=== PATIENT | male | born 1985 | race Caucasian/White ===

== ENCOUNTER 2020-02-14 10:32 | Outpatient (REF) | payer OTHER, SELFPAY ==
[2020-02-14 13:05] LABS: MANUAL DIFF FLAG NO
[2020-02-14 13:19] LABS: Alanine Aminotransferase 25 U/L (0-40); Albumin Level 4.4 g/dL (3.5-5.0); Alkaline Phosphatase 63 U/L (39-117); Anion Gap 11 (12-20); Aspartate Amino Transferase 23 U/L (5-37); Bilirubin Total 0.7 mg/dL (0.0-1.0); Blood Urea Nitrogen 13 mg/dL (9-16); Calcium 9.2 mg/dL (8.4-10.2); Carbon Dioxide 29 mmol/L (22-29); Chloride 102 mmol/L (96-108); Cholesterol 200 mg/dL; Estimated Glomerular Filt Rate > 60; Glucose Fasting 94 mg/dL (60-99); HDL Cholesterol 59 mg/dL; LDL Cholesterol Calculated 133 mg/dl; Potassium 4.4 mmol/l (3.3-5.1); Sodium 138 mmol/L (135-145); Total Protein 7.5 g/dL (6.5-8.0); Triglycerides 44 mg/dL
[2020-02-14 13:33] LABS: Basophils Absolute Auto 0.1 X10*3/uL (0.0-0.2); Basophils Percent Auto 0.7 % (0-2); Eosinophils Absolute Auto 0.2 X10*3/uL (0.0-0.4); Eosinophils Percent Auto 1.8 % (0-4); Hematocrit 48.2 % (42-52); Imm Gran Abs Auto 0.04 X10*3/uL (0.00-0.03); Imm Gran Pct Auto 0.4 % (0.0-0.4); Lymphocytes Absolute Auto 1.6 X10*3/uL (1.2-4.9); Lymphocytes Percent Auto 16.8 % (20-40); Mean Corpuscular HGB Conc 33.2 g/dl (31.0-36.0); Mean Corpuscular Hemoglobin 31.3 pg (27.0-33.0); Mean Corpuscular Volume 94.1 fL (80-98); Mean Platelet Volume 9.1 fL (9.4-12.4); Monocytes Absolute Auto 0.5 X10*3/uL (0.1-1.2); Monocytes Percent Auto 5.7 % (2-11); Neutrophils Absolute Auto 7.1 X10*3/uL (2.0-8.3); Neutrophils Percent Auto 74.6 % (45-73); Platelet Count 442 X10*3/uL (160-400); Red Blood Count 5.12 X10*6/uL (4.60-5.80); Red Cell Distribution Width 11.8 % (11.0-16.0); White Blood Count 9.5 X10*3/uL (4.8-10.8)
[2020-02-14 14:42] LABS: Erythrocyte Sedimentation Rate 2 MM/HR (0-15)
== END 2020-02-14 10:33 | disposition home or self-care (01) ==
LOC: HO.LAB 10:32
PROVIDERS: PCP Internal Medicine Medical Oncology; Visit Provider Internal Medicine Medical Oncology
DX: K52.9 Noninfective gastroenteritis and colitis, unspecified (principal); E78.5 Hyperlipidemia, unspecified
CPT/HCPCS: 36415; 80053; 80061; 85025; 85652; 87045; 87046; 87177; 87209; 87324; 87449

== ENCOUNTER 2021-04-23 08:20 | Outpatient (REF) | payer BC, SELFPAY ==
--- NOTE | ~2021-04-23 | FL_ITS ---
EXAMINATION: XR FLUOROSCOPY UPPER GI WITH AIR CLINICAL INFORMATION: Upper abdominal pain COMPARISON: None TECHNIQUE: Air-contrast upper GI examination FINDINGS: Patient swallowed thin and thick barium without difficulty. There is normal apposition of vocal cords while saying E . There is normal elevation of the soft palate while saying candy . No nasopharyngeal reflux or tracheal aspiration was present. No persistent stricture or ulceration of the esophagus was identified. There appears to be small amount of mucosal irregularity at the gastroesophageal junction. There is spontaneous gastroesophageal reflux seen to the level of the thoracic inlet. This did clear rapidly. Patient swallowed half-inch diameter barium tablet without difficulty. The stomach demonstrated normal distensibility without evidence of ulceration or abnormal mass. There was no delay in gastric emptying. The duodenal bulb and sweep appeared unremarkable. FLUOROSCOPY TIME: 1.3 minutes DOSE AREA PRODUCT: 12.401 Gy-cm2 (flores-centimeter squared) FL/FL upper GI w air IMPRESSION: Free gastroesophageal reflux to the level of the thoracic inlet with what appears to be some mild mucosal abnormality at the gastroesophageal junction. Some degree of Aponte's esophagus not excluded.
--- NOTE | ~2021-04-23 | US_ITS ---
EXAMINATION: US ABDOMEN COMPLETE CLINICAL INFORMATION: Upper abdominal pain. COMPARISON: None TECHNIQUE: Real-time imaging of the abdominal viscera. FINDINGS: PANCREAS: The head and body appear unremarkable without abnormal mass or peripancreatic inflammatory change. The tail is obscured by overlying bowel gas. ABDOMINAL AORTA: The proximal, mid, and distal segments are normal in caliber. INFERIOR VENA CAVA: Visualized portions are normal. LIVER: There is diffusely increased echogenicity consistent with fatty infiltration. The liver contour is normal. No focal hepatic lesion. There is no intrahepatic biliary duct dilatation seen. GALLBLADDER: Normal. The gallbladder is physiologically distended without evidence of stones, sludge, polyps, wall thickening or pericholecystic fluid. COMMON BILE DUCT: Normal in caliber measuring 0.3 cm in diameter. RIGHT KIDNEY: Normal. No hydronephrosis. No renal calculi or focal parenchymal lesions. The kidney measures 12.2 cm in maximum dimension. LEFT KIDNEY: Normal. No hydronephrosis. No renal calculi or focal parenchymal lesions. The kidney measures 11.1 cm in maximum dimension. SPLEEN: Normal. The spleen measures 11.9 cm in maximum dimension. FREE FLUID: None. US/US abdomen complete IMPRESSION: Findings consistent with fatty infiltration of the liver.
== END 2021-04-23 08:21 | disposition home or self-care (01) ==
LOC: HO.US 08:20
PROVIDERS: PCP Internal Medicine Medical Oncology; Visit Provider Internal Medicine Medical Oncology
DX: R10.10 Upper abdominal pain, unspecified (principal); K21.9 Gastro-esophageal reflux disease without esophagitis
CPT/HCPCS: 74246; 76700

== ENCOUNTER 2021-07-14 15:34 | Emergency (ER) | payer BC, SELFPAY ==
--- NOTE | ~2021-07-14 | US_ITS ---
EXAMINATION: US VENOUS ULTRASOUND WITH DOPPLER LOWER EXTREMITY, RIGHT CLINICAL INFORMATION: Right lower extremity pain and swelling COMPARISON: None TECHNIQUE: Ultrasound of the deep veins is performed from the hip to the calf with compression sonography and color and pulse Doppler assessment. Spectral analysis with color-flow imaging is performed. FINDINGS: There is normal venous compression and respiratory variation and augmented flow. The visualized common femoral vein, superficial femoral vein, profunda femoral vein, popliteal vein, and the trifurcation region shows no evidence of deep venous thrombosis. There is no significant popliteal fossa cyst. If the patient's symptoms persist, followup ultrasound in 5 days 7 days might be of value to exclude proximal propagation from a non-visualized calf vein. US/US venous duplex LE RT IMPRESSION: No DVT demonstrated in the right lower extremity.
[2021-07-14 16:09] VITALS: BP 119/74; PULSE 88; RESP 16; TEMP 36.7; O2SAT 98; BMI 32.0
[2021-07-14 16:29] LABS: MANUAL DIFF FLAG NO
[2021-07-14 16:35] LABS: Basophils Absolute Auto 0.1 X10*3/uL (0.0-0.2); Basophils Percent Auto 0.8 % (0-2); Eosinophils Absolute Auto 0.3 X10*3/uL (0.0-0.4); Eosinophils Percent Auto 3.3 % (0-4); Hematocrit 45.1 % (42.0-52.0); Hemoglobin 14.8 g/dl (14.0-18.0); Imm Gran Abs Auto 0.03 X10*3/uL (0.00-0.03); Imm Gran Pct Auto 0.3 % (0.0-0.4); Lymphocytes Absolute Auto 2.4 X10*3/uL (1.2-4.9); Mean Corpuscular HGB Conc 32.8 g/dl (31.0-36.0); Mean Corpuscular Hemoglobin 30.6 pg (27.0-33.0); Mean Corpuscular Volume 93.2 fL (80.0-98.0); Monocytes Absolute Auto 0.6 X10*3/uL (0.1-1.2); Monocytes Percent Auto 6.8 % (2-11); Neutrophils Percent Auto 63.8 % (45-73); Platelet Count 365 X10*3/uL (160-400); Red Blood Count 4.84 X10*6/uL (4.60-5.80); Red Cell Distribution Width 11.9 % (11.0-16.0); White Blood Count 9.4 X10*3/uL (4.8-10.8)
[2021-07-14 16:36] LABS: INTERNATIONAL NORM RATIO 1.1 (0.9-1.1); Prothrombin Time 12.1 SEC (9.9-13.0)
[2021-07-14 16:48] LABS: Alanine Aminotransferase 31 U/L (0-40); Albumin Level 4.4 g/dL (3.5-5.0); Alkaline Phosphatase 65 U/L (39-117); Anion Gap 13 (12-20); Aspartate Amino Transferase 24 U/L (5-37); Bilirubin Total 0.4 mg/dL (0.0-1.0); Blood Urea Nitrogen 20 mg/dL (9-16); Calcium 9.9 mg/dL (8.4-10.2); Carbon Dioxide 27 mmol/L (22-29); Chloride 104 mmol/L (96-108); Creatinine Clr Calc Pharmacy 133.6; Estimated Glomerular Filt Rate > 60; Glucose Random 94 mg/dL (60-115); Potassium 4.5 mmol/L (3.3-5.1); Sodium 139 mmol/L (135-145); Total Protein 7.6 g/dL (6.5-8.0)
[2021-07-14 16:55] LABS: D Dimer High Sensitivity < 150 NG/ML
--- NOTE | 2021-07-14 17:06 | ED_ITS ---
HPI - Extremity Injury (Lower) General Chief Complaint: Extremity Injury, Lower Stated Complaint: rt leg pain Time Seen by Provider: 07/14/21 16:12 Source: patient Mode of arrival: ambulatory Limitations: no limitations History of Present Illness HPI Narrative: This is a 35-year-old male no significant medical history presenting to the emergency department complaints of right calf pain/discomfort x3 weeks. Patient tells me that he feels a deep discomfort/throbbing sensation in his right calf, he tells me that last week he felt like he was moving up to his right hamstring. 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 He does not have a history of DVT or PE. He does not carry a sedentary lifestyle. He is not on blood thinners. No family or personal history history of hypercoagulable disorders. Patient denies chest pain, shortness of breath, nausea, vomiting, abdominal pain, dizziness, weakness. He also denies recent long travel. He was advised to come in today by his PCP. MD complaint: other (Atraumatic right calf pain) Onset (ago): week(s) (3) Type of Injury: other (None) Severity: mild Relieving factors: nothing Exacerbating factors: nothing Other symptoms: none Related Data Previous Rx's Medication Instructions Recorded cyclobenzaprine 10 mg tablet 10 mg PO BEDTIME PRN #7 tab 07/14/21 naproxen 500 mg tablet 500 mg PO BID #30 tab 07/14/21 Allergies Allergy/AdvReac Type Severity Reaction Status Date / Time No Known Allergies Allergy Verified 07/14/21 16:09 Review of Systems Review of Systems: Constitutional : No Weight loss, No Fever, No Chills, No Fatigue, No Malaise ENT/Mouth : No sore throat, No Rhinorrhea Eyes: No Eye Pain, No Swelling, No Redness Cardiovascular : No Chest Pain, No SOB, No Dyspnea on Exertion, No Orthopnea, No Edema, No Palpitations Respiratory : No Cough, No Sputum, No Wheezing Gastrointestinal : No Nausea, No Vomiting, No Diarrhea, No Constipation, No abdominal Pain, No Hematochezia, No Melena Genitourinary : No Dysuria, No Urinary Frequency, No Hematuria, Musculoskeletal : No joint pain, No Myalgias, No Joint Swelling, + calf pain Skin : No Skin Lesions, No rash Neuro : No Weakness, No Numbness, No Dizziness, No Headache Psych : No Anxiety/Panic, No Depression All other systems reviewed and are negative Yes all other systems are reviewed and are negative COUNTS INCLUDE 234 BEDS AT THE [facility] Past Medical History Attestation statement: The following information was validated with the patient. Source: old records reviewed and nursing notes reviewed Medical History No known health problems Social History Social History Advance Directives: No Advance Directives Information Provided: No Physical Exam Vital Signs: Vital Signs: Last Vital Signs Temp 98.1 F 07/14/21 16:09 Pulse 88 07/14/21 16:09 Resp 16 07/14/21 16:09 BP 119/74 07/14/21 16:09 Pulse Ox 98 07/14/21 16:09 BMI result Body Mass Index 32.0 vss Appearance: Alert.? Oriented X3.? No acute distress.? Head: Normocephalic, atraumatic, no step-offs or deformities Eyes: Pupils equal, round and reactive to light.? ENT: Pharynx normal.? Neck: Normal inspection.? Neck supple.? CVS: Normal heart rate and rhythm.? Pulses normal.? Respiratory: No respiratory distress.? Breath sounds normal.? Abdomen: Soft and nontender.? Skin: Skin warm and dry.? Normal skin color.? Normal skin turgor.? Extremities: No lower extremity edema.? +calf ttp on right + laith or right, no calf ttp on left, negative laith on left . 5/5 strength to bilateral upper and lower extremities Back: No midline tenderness, no C-spine tenderness, full range of motion, no CVA tenderness bilaterally Neuro: Oriented X 3.? No motor deficit.? No sensory deficit. CN 2-12 intact Course Reevaluation(s) Reevaluation #1: CBC within normal limits. Chemistry with no acute electrolyte abnormalities requiring intervention. D-dimer negative, unlikely that this is a PE/DVT. However, as patient was sent in by his PCP for an ultrasound will obtain an ultrasound of the right lower extremity to rule out DVT. Time: 17:51 Reevaluation #2: Patient with stable vitals. Feels well, no shortness of breath, or chest pain. At this time I will discharge patient home and call him only if his ultrasound results are positive. Comfortable discharge home with PCP follow-up. Time: 18:12 MDM - Extremity Injury (Lower) MDM Narrative Medical decision making narrative: 1618 35-year-old male no significant medical history presents with atraumatic right calf pain. Advised to come in to rule out DVT by PCP. On exam lungs clear, regular rate and rhythm, abdomen soft nontender nondistended, no lower extremity edema, calf tenderness to the right calf no tenderness on a left. Neuro exam nonfocal. Very low suspicion for DVT, unlikely PE. Patient does not have risk factors for PE/DVT. Plan at this time is PT INR, basic labs, D-dimer. Medical Records Attestation: I reviewed the patient's medical records. Lab Data Attestation: I reviewed the patient's lab results. Result diagrams: 07/14/21 16:24 07/14/21 16:24 Labs: Lab Results 07/14/21 07/14/21 07/14/21 Range/Units 16:24 16:24 16:24 WBC 9.4 (4.8-10.8) X10*3/uL RBC 4.84 (4.60-5.80) X10*6/uL Hgb 14.8 (14.0-18.0) g/dl Hct 45.1 (42.0-52.0) % MCV 93.2 (80.0-98.0) fL MCH 30.6 (27.0-33.0) pg MCHC 32.8 (31.0-36.0) g/dl RDW 11.9 (11.0-16.0) % Plt Count 365 (160-400) X10*3/uL MPV 9.0 L (9.4-12.4) fL Immature Gran % (Auto) 0.3 (0.0-0.4) % Neut % (Auto) 63.8 (45-73) % Lymph % (Auto) 25.0 (20-40) % Gila % (Auto) 6.8 (2-11) % Eos % (Auto) 3.3 (0-4) % Baso % (Auto) 0.8 (0-2) % Lymph # (Auto) 2.4 (1.2-4.9) X10*3/uL Gila # (Auto) 0.6 (0.1-1.2) X10*3/uL Eos # (Auto) 0.3 (0.0-0.4) X10*3/uL Baso # (Auto) 0.1 (0.0-0.2) X10*3/uL Abs Immat Gran (auto) 0.03 (0.00-0.03) X10*3/uL Absolute Neuts (auto) 6.0 (2.0-8.3) x10*3/uL Absolute Nucleated RBC 0.000 (0.0-0.012) X10*3/uL Nucleated RBC % (auto) 0.0 (0.0-0.2) /100WBC PT 12.1 (9.9-13.0) SEC INR 1.1 (0.9-1.1) D-Dimer High Sensitivty < 150 NG/ML Sodium 139 (135-145) mmol/L Potassium 4.5 (3.3-5.1) mmol/L Chloride 104 (96-108) mmol/L Carbon Dioxide 27 (22-29) mmol/L Anion Gap 13 (12-20) BUN 20 H (9-16) mg/dL Creatinine 0.93 (0.5-1.4) mg/dL Estim Creat Clear Calc 133.6 Estimated GFR > 60 Random Glucose 94 (60-115) mg/dL Calcium 9.9 D (8.4-10.2) mg/dL Magnesium 2.0 (1.6-2.6) mg/dL Total Bilirubin 0.4 (0.0-1.0) mg/dL AST 24 (5-37) U/L ALT 31 (0-40) U/L Alkaline Phosphatase 65 (39-117) U/L Total Protein 7.6 (6.5-8.0) g/dL Albumin 4.4 (3.5-5.0) g/dL Critical Care Time Critical Care Time Critical Care Time: No Discharge Plan Discharge Clinical Impression: Right calf pain Patient Disposition: Home, Self-Care Instructions: Leg Cramps (ED), Leg Pain (ED) Additional Instructions: Take your medications as prescribed. If you were prescribed antibiotics today, it is important that you take your medication to their entirety, do not skip any doses, do not finish them early. Follow-up with your primary care provider this week. Return to the emergency department with new or worsening symptoms. Such as fevers, chills, chest pain, shortness of breath, nausea, vomiting, dizziness, headache, vision changes, lethargy In case of emergency call 911 I prescribed a muscle relaxer, he can take this night before bed, please do not take this while driving or when operating machinery as this can make you sleepy. This can help your calf pain. Your ultrasound is still pending I will give you a phone call only if results are positive. If you do not receive a phone call your results are negative. I do not suspect that you have a DVT as your D-dimer was negative. Prescriptions: New cyclobenzaprine 10 mg tablet 10 mg PO BEDTIME PRN (Reason: muscle spasm) Qty: 7 0RF naproxen 500 mg tablet 500 mg PO BID Qty: 30 0RF Referrals: Juan Bautista MD [Primary Care Provider] - 1 week Stand Alone Forms: Work/School Release
== END 2021-07-14 18:22 | disposition home or self-care (01) ==
PROVIDERS: Physician Assistant Medical; Emergency Provider Emergency Medicine; PCP Internal Medicine Medical Oncology
DX: M79.661 Pain in right lower leg (principal); R60.0 Localized edema; Z79.899 Other long term (current) drug therapy
CPT/HCPCS: 36415; 80053; 83735; 85025; 85379; 85610; 93971; 99283; 99284

== ENCOUNTER 2023-02-26 09:28 | Outpatient (REF) | payer BC, SELFPAY ==
[2023-02-26 09:56] LABS: MANUAL DIFF FLAG NO
[2023-02-26 10:36] LABS: Basophils Absolute Auto 0.1 X10*3/uL (0.0-0.2); Eosinophils Absolute Auto 0.5 X10*3/uL (0.0-0.4); Eosinophils Percent Auto 6.9 % (0-4); Hematocrit 45.6 % (42.0-52.0); Hemoglobin 14.5 g/dl (14.0-18.0); Imm Gran Abs Auto 0.02 X10*3/uL (0.00-0.03); Imm Gran Pct Auto 0.3 % (0.0-0.4); Lymphocytes Absolute Auto 2.1 X10*3/uL (1.2-4.9); Lymphocytes Percent Auto 30.7 % (20-40); Mean Corpuscular HGB Conc 31.8 g/dl (31.0-36.0); Mean Corpuscular Hemoglobin 30.1 pg (27.0-33.0); Mean Corpuscular Volume 94.6 fL (80.0-98.0); Mean Platelet Volume 8.9 fL (9.4-12.4); Monocytes Absolute Auto 0.6 X10*3/uL (0.1-1.2); Monocytes Percent Auto 8.2 % (2-11); Neutrophils Absolute Auto 3.6 x10*3/uL (2.0-8.3); Neutrophils Percent Auto 52.9 % (45-73); Platelet Count 377 X10*3/uL (160-400); Red Blood Count 4.82 X10*6/uL (4.60-5.80); Red Cell Distribution Width 12.2 % (11.0-16.0); White Blood Count 6.9 X10*3/uL (4.8-10.8)
[2023-02-26 11:10] LABS: Alanine Aminotransferase 17 U/L (0-40); Albumin Level 4.3 g/dL (3.5-5.0); Alkaline Phosphatase 65 U/L (39-117); Anion Gap 11 (12-20); Aspartate Amino Transferase 19 U/L (5-37); Bilirubin Total 0.5 mg/dL (0.0-1.0); Blood Urea Nitrogen 14 mg/dL (9-16); Calcium 9.1 mg/dL (8.4-10.2); Carbon Dioxide 29 mmol/L (22-29); Chloride 108 mmol/L (96-108); Cholesterol 201 mg/dL (<200); Estimated Glomerular Filt Rate > 60; Glucose Fasting 99 mg/dL (60-99); HDL Cholesterol 58 mg/dL (>40); LDL Cholesterol Calculated 134 mg/dL (<100); Potassium 4.1 mmol/L (3.3-5.1); Sodium 144 mmol/L (135-145); Total Protein 7.5 g/dL (6.5-8.0); Triglycerides 48 mg/dL (<150)
== END 2023-02-26 09:29 | disposition home or self-care (01) ==
LOC: HO.LAB 09:28
PROVIDERS: PCP Internal Medicine Medical Oncology; Visit Provider Internal Medicine Medical Oncology
DX: Z00.00 Encounter for general adult medical examination without abnormal findings (principal); E66.9 Obesity, unspecified
CPT/HCPCS: 36415; 80053; 80061; 85025

== ENCOUNTER 2023-09-20 14:30 | Outpatient (REF) | payer BC, SELFPAY ==
--- NOTE | ~2023-09-20 | XR_ITS ---
EXAMINATION: XR LUMBOSACRAL SPINE WITH OBLIQUES CLINICAL INFORMATION: Lumbar back pain COMPARISON: None available. TECHNIQUE: AP, both oblique, and lateral views of the lumbar spine. Lateral view of the lumbosacral junction. FINDINGS: The vertebral bodies and posterior elements are normal. No spondylolysis. The disc spaces are preserved and the vertebral alignment is normal. The paraspinal soft tissues are normal. XR/XR lumbar spine 4V min IMPRESSION: Unremarkable examination.
== END 2023-09-20 14:31 | disposition home or self-care (01) ==
LOC: HO.XRAY 14:30
PROVIDERS: Visit Provider Internal Medicine Medical Oncology
DX: M54.50 Low back pain, unspecified (principal)
CPT/HCPCS: 72110

== ENCOUNTER 2023-09-27 11:50 | Outpatient (REF) | payer BC, SELFPAY ==
--- NOTE | ~2023-09-27 | MR_ITS ---
EXAMINATION: MR LUMBAR SPINE WITHOUT CONTRAST CLINICAL INFORMATION: Pain radiating down right leg. COMPARISON: X-ray dated 09/20/2023. TECHNIQUE: MRI of the lumbar spine was obtained using routine sequences without contrast. Slightly limited study with motion artifacts. FINDINGS: At the L5-S1 level, there is mild disc degeneration and a mild loss of disc height with a shallow, broad-based right subarticular zone disc protrusion which mildly impresses upon the right S1 nerve root. No central canal stenosis or foraminal narrowing is evident at this level. There is a smaller left subarticular zone disc protrusion at this level as well. At the L4-L5 level, there is a slight posterior subluxation and mild facet arthropathy with a broad-based left posterolateral disc protrusion which contributes to [id number] left foraminal encroachment and mild impression upon the exiting left L4 nerve root. No central canal stenosis at this level. Very mild leftward lumbar spinal curvature noted. The remaining lower thoracic and lumbar discs are normal in appearance. The distal cord, conus tip, and cauda equina nerve roots are normal. The marrow signal is homogeneous. There are no compression fractures. The paraspinal soft tissues appear normal. The imaged bony pelvis is unremarkable. MR/MR lumbar spine wo con IMPRESSION: Slightly limited examination with motion artifacts. Disc degeneration and broad-based right subarticular zone disc protrusion at the L5-S1 level impressing upon the right S1 nerve root. Smaller left subarticular zone disc protrusion as well. Very mild posterior subluxation at the L4-L5 level with a broad-based left posterolateral disc protrusion resulting in [id number] left foraminal encroachment and mild mass effect upon the exiting left L4 nerve root.
== END 2023-09-27 11:51 | disposition home or self-care (01) ==
LOC: HO.MRI 11:50
PROVIDERS: PCP Internal Medicine Medical Oncology; Visit Provider Internal Medicine Medical Oncology
DX: M54.50 Low back pain, unspecified (principal)
CPT/HCPCS: 72148

== ENCOUNTER 2023-10-11 12:46 | Outpatient (AMB) | payer BC, SELFPAY ==
--- NOTE | 2023-10-11 13:01 | A.SPINEOV_ITS ---
Intake Visit Reasons: low back pain Intake Note: Mr. Barton is here today c/o back pain. Qa Developer Required: No Allergies No Known Allergies Allergy (Verified 07/14/21 16:09) Assessment & Plan Assessment & Plan (1) Lumbar radiculopathy: Code(s): M54.16 - Radiculopathy, lumbar region Category: Medical Plan Dear colleague, Thank you for referring Kamran to our office today. He is a pleasant 38-year-old male who comes in today with a chief complaint of low back pain with radiation into his right lower extremity. When describing the pain into his right lower extremity he states it originates in his posterior buttocks, shoots around the lateral right thigh, down the posterior gastrocnemius, & to the right calf. He reports that this has been waxing / waning in nature for the past 6 weeks. He identifies an inciting incident of bending over to pick something up on the way out to his truck in the morning before work. He felt a sharp pain in his back which brought him to the ground, and began experiencing shooting pains down his right leg. Thankfully, the patient states that his symptoms have greatly improved since onset, and are now low-grade in nature. They are isolated to his right leg, in his low back is not affected very much. He denies any saddle anesthesia or difficulties with urination / bowel movements. He has not tried conservative measures such as injections / physical therapy as of yet. PMH: None reported. Social hx: Patient does not smoke & reports no substance use. Medications: Gabapentin, cyclobenzaprine, dexamethasone, tramadol, Tylenol. Allergies: NKDA. Physical exam: The Patient has 5/5 strength in his upper and lower extremities. He does elicit pain to right-sided hip flexion. He denies any sensational deficits. He walks without an antalgic gait and rises from a seated position without difficulty. (-) Straight leg raise bilaterally. (-) clonus. Imaging review: MRI of the lumbar spine completed at [facility], [place] shows a right-sided paracentral disc bulge, which slightly compresses the ri ght-sided S1 nerve root. There is no significant foraminal or central canal stenosis. Impression: Kamran is a pleasant 38-year-old male who comes in today with a chief complaint of low back pain and shooting pains into his right lower extremity. He states that this was acute in onset. Thankfully, his symptoms have slowly resolved over the course of the last few weeks. His history and physical exam are most consistent with an acute disc herniation. it seems as though his symptoms are beginning to resolve. We discussed how 90% of disc herniations will resorb in the few months after they happen. He was strongly encouraged to continue pursuing conservative treatments and to reach back out to our office if he has any return of severe shooting pain, or any development of acute neurological symptoms such as numbness, tingling, burning, weakness, bowel/bladder issues. He is scheduled to begin physical therapy on October 27. Thank you for allowing us to care for your patient. The total time spent with this visit with this patient was 45 minutes reviewing history, physical exam, MRI imaging review, and implementation of treatment plan or further diagnostic testing Shaka Weaver MD,PhD [facility] [place] Coding Level of Care Code New Pt Level 4 (91160) Diagnoses Lumbar radiculopathy M54.16
== END 2023-10-11 13:57 | disposition home or self-care (01) ==
PROVIDERS: PCP Internal Medicine Medical Oncology; Referring Provider Internal Medicine Medical Oncology; Visit Provider Physician Assistant
DX: M54.16 Radiculopathy, lumbar region (principal)
CPT/HCPCS: 99204

== ENCOUNTER → 2023-10-11 12:46 | Outpatient (BNVA) | payer BC, SELFPAY | PROVIDERS: PCP Internal Medicine Medical Oncology; Visit Provider Physician Assistant ==

== ENCOUNTER 2023-10-11 14:23 | Outpatient (AMB) | payer BC, SELFPAY ==
--- NOTE | 2023-10-11 14:35 | A.OFFVIS_ITS ---
Vital Signs 10/11/23 14:42 Height 6 ft Weight 220 lb 2 oz BMI 29.9 BP 124/64 Blood Pressure Location Lt brachial Position Sitting Respiration 16 Pulse 102 H Pulse Source Pulse Oximeter Pulse Oximetry (%) 97 Oxygen Delivery Method Room Air Intake Visit Reasons: LUMBAR BACK PAIN WITH RADICULOPATHY Intake Note: Patient comes in initial visit was referred by primary care. Reports pain 3/10 Allergies No Known Allergies Allergy (Verified 10/11/23 14:42) HPI Comments Details: Liat is very pleasant 38 years old gentleman who presents in my office with complains on pain in the right buttock with radiation of the pain to the right lower extremity. He reports that his pain was very severe and almost unbearable 3 weeks ago when appointment was scheduled. However now his pain is very mild he reports his pain today 3/10. He reports that his pain is getting better. He can not sleep normally because of his pain but he can not do activities of daily living he can not take care of himself he can not function normally. 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 Movements aggravate his pain topical medications all medications make his pain better. He is scheduled to start physical therapy October 27. He had x-rays and an MRI of the lumbar spine the MRI dictated as below. Currently he is taking gabapentin tramadol and cyclobenzaprine and those medications help his sleep. He denies past medical history he denies past surgical history he denies smoking cigarettes he stopped 3 months ago. He drinks 3-4 beers a week he denies drinking soda or coffee he denies he denies recreational drugs [facility] Medical History No known health problems Review of Systems Const Reports no additional complaints Eyes Reports no additional complaints ENT Reports Normal hearing present Card Reports no additional complaints Resp Reports no additional complaints GI Reports no additional complaints Reports no additional complaints Musc Reports as per HPI Neuro Reports no additional complaints, Reports Normal hearing present, Denies Abnormal speech present, Denies confusion and Denies Sensory deficit (Neuro) Psych Reports no additional complaints and Denies confusion Physical Exam Vital Signs: Last Vital Signs Pulse 102 H 10/11/23 14:42 Resp 16 10/11/23 14:42 BP 124/64 10/11/23 14:42 Pulse Ox 97 10/11/23 14:42 Oxygen Delivery Method Room Air 10/11/23 14:42 BMI result Body Mass Index 29.9 Const General: no acute distress; No confusion Orientation/consciousness: patient oriented x3 and No confusion Eyes General: appearance normal, both eyes and all related structures Pupils: Equal, round and reactive pupils present EOM: EOMs intact bilaterally Neck Neck: Yes full ROM Chest Chest palpation & inspection: normal inspection of the chest Resp Effort & Inspection: normal respiratory effort, able to speak in complete sentences, normal respiratory pattern, no audible wheezes and no cough Cardio Jugular venous distension: no JVD GI Inspection: Yes normal to inspection Back/Spine/Pelvis Other: SLR is equivocal on the right and negative on the left. Bending forward and bending backwards used to aggravate his pain. However now he reports that both bending backwards and bending forward is painless. Lateral rotation and medial rotation of the right hip does not aggravate his pain. Neuro General: patient oriented x3, gait normal and No confusion Cranial nerves: Yes CN's II-XII intact bilaterally, Yes Equal, round and reactive pupils present, Yes Normal hearing present and Yes Ability to bilaterally elevate shoulders present Speech: No Abnormal speech present Gait exam (Neuro): Normal gait present Motor exam (neuro): 5/5 motor strength present throughout Sensory Exam: No Sensory deficit (Neuro) Extrem General: No pedal edema Psych Speech and movement: Normal speech and movement present Affect: normal affect Attitude: cooperative Thought process: Normal thought process present Thought content: Normal thought content present Insight: Good insight present (Psych) Judgement: Good judgement present (Psych) Results Reviewed Results Reviewed: MR LUMBAR SPINE WITHOUT CONTRAST TECHNIQUE: MRI of the lumbar spine was obtained using routine sequences without contrast. Slightly limited study with motion artifacts. FINDINGS: At the L5-S1 level, there is mild disc degeneration and a mild loss of disc height with a shallow, broad-based right subarticular zone disc protrusion which mildly impresses upon the right S1 nerve root. No central canal stenosis or foraminal narrowing is evident at this level. There is a smaller left subarticular zone disc protrusion at this level as well. At the L4-L5 level, there is a slight posterior subluxation and mild facet arthropathy with a broad-based left posterolateral disc protrusion which contributes to [id number] left foraminal encroachment and mild impression upon the exiting left L4 nerve root. No central canal stenosis at this level. Very mild leftward lumbar spinal curvature noted. The remaining lower thoracic and lumbar discs are normal in appearance. The distal cord, conus tip, and cauda equina nerve roots are normal. The marrow signal is homogeneous. There are no compression fractures. The paraspinal soft tissues appear normal. The imaged bony pelvis is unremarkable. IMPRESSION: Slightly limited examination with motion artifacts. Disc degeneration and broad-based right subarticular zone disc protrusion at the L5-S1 level impressing upon the right S1 nerve root. Smaller left subarticular zone disc protrusion as well. Very mild posterior subluxation at the L4-L5 level with a broad-based left posterolateral disc protrusion resulting in [id number] left foraminal encroachment and mild mass effect upon the exiting left L4 nerve root. Assessment & Plan Assessment & Plan (1) Lumbar radiculopathy: Code(s): M54.16 - Radiculopathy, lumbar region Category: Medical Plan MRI of this patient positive for nerve root compression at exiting L4 and passing S1 nerve roots. However the patient is improving and his pain is getting better. He is starting physical therapy 10/28/2023. 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 Recommendations: Continue with physical therapy. Be cognizant of lower back problem, use ergonomics at work. If after completion of physical therapy his pain is not better or getting worse he can not come back to this office and we will try epidural steroid injections on him. Coding Level of Care Code New Pt Level 3 (02613) Diagnoses Lumbar radiculopathy M54.16
[2023-10-11 14:42] VITALS: BP 124/64; PULSE 102; RESP 16; O2SAT 97; BMI 29.9
== END 2023-10-11 15:07 | disposition home or self-care (01) ==
PROVIDERS: PCP Internal Medicine Medical Oncology; Referring Provider Internal Medicine Medical Oncology; Visit Provider Anesthesiology
DX: M54.16 Radiculopathy, lumbar region (principal)
CPT/HCPCS: 99203

== ENCOUNTER 2024-02-29 16:12 | Outpatient (REF) | payer BC, SELFPAY ==
[2024-02-29 16:29] LABS: MANUAL DIFF FLAG NO
[2024-02-29 17:08] LABS: Basophils Absolute Auto 0.1 X10*3/uL (0.0-0.2); Basophils Percent Auto 0.8 % (0-2); Eosinophils Absolute Auto 0.1 X10*3/uL (0.0-0.4); Eosinophils Percent Auto 0.9 % (0-4); Hematocrit 43.5 % (42.0-52.0); Hemoglobin 14.6 g/dl (14.0-18.0); Imm Gran Abs Auto 0.02 X10*3/uL (0.00-0.03); Imm Gran Pct Auto 0.2 % (0.0-0.4); Lymphocytes Absolute Auto 2.5 X10*3/uL (1.2-4.9); Mean Corpuscular HGB Conc 33.6 g/dl (31.0-36.0); Mean Corpuscular Hemoglobin 30.5 pg (27.0-33.0); Mean Platelet Volume 8.7 fL (9.4-12.4); Monocytes Absolute Auto 0.8 X10*3/uL (0.1-1.2); Neutrophils Absolute Auto 6.8 x10*3/uL (2.0-8.3); Neutrophils Percent Auto 66.1 % (45-73); Platelet Count 407 X10*3/uL (160-400); Red Blood Count 4.78 X10*6/uL (4.60-5.80); Red Cell Distribution Width 11.9 % (11.0-16.0); White Blood Count 10.2 X10*3/uL (4.8-10.8)
[2024-02-29 18:32] LABS: Alanine Aminotransferase 31 U/L (0-40); Albumin Level 4.6 g/dL (3.5-5.0); Alkaline Phosphatase 60 U/L (39-117); Anion Gap 12 (12-20); Aspartate Amino Transferase 25 U/L (5-37); Bilirubin Total 0.6 mg/dL (0.0-1.0); Blood Urea Nitrogen 13 mg/dL (9-16); Calcium 9.7 mg/dL (8.4-10.2); Carbon Dioxide 29 mmol/L (22-29); Chloride 104 mmol/L (96-108); Cholesterol 204 mg/dL (<200); Estimated Glomerular Filt Rate > 60; Glucose Fasting 89 mg/dL (60-99); HDL Cholesterol 56 mg/dL (>40); LDL Cholesterol Calculated 134 mg/dL (<100); Sodium 141 mmol/L (135-145); Total Protein 7.5 g/dL (6.5-8.0); Triglycerides 72 mg/dL (<150)
[2024-02-29 18:35] LABS: Prostate Specific Antigen 1.13 ng/mL (<0.05-4.0)
== END 2024-02-29 16:13 | disposition home or self-care (01) ==
LOC: HO.LAB 16:12
PROVIDERS: PCP Internal Medicine Medical Oncology; Visit Provider Internal Medicine Medical Oncology
DX: Z00.00 Encounter for general adult medical examination without abnormal findings (principal); E66.9 Obesity, unspecified; Z12.5 Encounter for screening for malignant neoplasm of prostate; N40.0 Benign prostatic hyperplasia without lower urinary tract symptoms
CPT/HCPCS: 36415; 80053; 80061; 84153; 85025

== ENCOUNTER 2024-08-28 16:43 | Outpatient (REF) | payer BC, SELFPAY ==
--- OUTSIDE RECORDS SUMMARY | 2024-08-28 17:11 | XMS_ITS ---
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 Name Role Phone Juan Bautista Primary Care Provider [phone] Allergies Allergen (clinical drug ingredient) Drug/Non Drug Allergy documented on EMR Reaction Allergy Type Onset Date Status No Known Drug Allergy Unknown Drug Allergy Active Reason For Referral Reason chalazion right uppe r eyelid refractory to antibiotics Diagnosis 1 Chalazion of right u pper eyelid (H00.11) Referral Organization Juan Bautista III, MD Referring Provider First Name Juan Referring Provider Last Name Michele Referring Provider Speciality Internal M edicine Referred Provider [facility] ociates Referred Provider Specialty Tub Chucker Referral Priority Routine REASON FOR VISIT Right eyelid swollen x 3 weeks Medications Medication SIG (Take, Route, Frequency, Duration) Notes Start Date End Date Status Gabapentin 300 MG 1 capsule Orally fou r times a day 09/28/2023 Active traMADol HCl 50 MG 1 tablet as needed Orally three times a angel 09/28/2023 Active Albuterol Sulfate 108 (90 Base) MCG/ACT 1 puff as needed Inhalation every 4 hrs Active dexAMETHasone 2 MG 1 tablet Orally ever y 12 hrs 09/20/2023 Active Cyclobenzaprine HCl 10 MG 1 tablet Orall y three times a day 09/20/2023 Active Social History Tobacco Use: Social History Observation Description Date Details (start date - stop date) Former Smoker NA - NA Sex Assigned At : Social History Observation Description Sex Assigned At Male Tobacco Control (Standard) Question Answer Notes Tobacco use: Former smoker How long has it been since you last smoked? 6-12 months Additional Findings: Tobacco non-user Ex-cigaret te smoker Vital Signs Temperature 97.9 degrees Fahrenheit 08/29/19 25 Blood pressure systolic 142 mm Hg 08/29/19 25 Blood pressure diastolic 73 mm Hg 025 Heart Rate 82 /min 08/28/2024 Height 71 in 08/28/2024 Weight 217 lbs 08/28/2024 BMI 30.26 kg/m2 08/28/2024 Encounters Encounter Location Date Provider Diagnosis Juan Bautista III, MD [address] [place] [address] [place] [address] 08/28/2024 Juan Bautista Obesity (BMI 30.0-34.9) E66.9 ; Lumbar radiculopathy, right M54.16 and Chalazion of right upper eyelid H00.11 Assessments Encounter Date Diagnosis (ICD Code) Assessment Notes Treatment Notes Treatment Clinical Notes 08/28/2024 Obesity (BMI 30.0-34.9) (ICD-10 - E66.9) He continues his efforts at further weight loss. We have reviewed his diet and nutrition. We have reviewed his weight loss strategy. We made a plan to lose weightt at a rate of one half of a pound per week through regular physical activity aand a diet restricted in fat calories and sodium. 08/28/2024 Lumbar radiculopathy, right (ICD-10 - M54.16) The MRI shows bilateral nerve impingement in the lower lumbar spine. His pain remains severe but has improved slightly with the gabapentin. I have increased the dose and continue the dexamethasone. He has been referred to pain management and neurosurgery. He has been given a supply of oxycodone to take 4 times a day for severe pain. He was cautioned not to drive an automobile or operate heavy machinery or consume alcohol with this medication. 08/28/2024 Chalazion of right upper eyelid (ICD-10 - H00.11) Plan Of Treatment Medication Medication Name Sig Start Date Stop Date Notes Gabapentin 300 MG 1 capsule Orally fou r times a day 09/28/2023 traMADol HCl 50 MG 1 tablet as needed O rally three times a angel 09/28/2023 Albuterol Sulfate 108 (90 Ba se) MCG/ACT 1 puff as needed Inhalation every 4 hrs dexAMETHasone 2 MG 1 tablet Orally ever y 12 hrs 09/20/2023 Cyclobenzaprine HCl 10 MG 1 tablet Orall y three times a day 09/20/2023 Pending Test Test Name Order Date Routine Culture 08/28/2024 Referrals Referral Date Details 08/28/2024 08/28/2024, kunal holley right upper eyelid refractory to antibiotics, [facility] Next Appt Details Follow Up: end of next week, Reason: TV review culture Provider Name:Juan Brightrne, 09/07/2024 10:30:00 AM, [address] [facility], [place], [address], Provider Name:Juan Michele, 03/02/2025 04:00:00 PM, [address] [facility], [place], [address], Progress Notes * Kamran BARTON FDOB: [birth year] (39 yo M)Acc No.[id number]:08/28/2024 Progress Notes Patient:?Kamran BARTON F Provider:?Juan Bautista MD :1985???Age:39 Y???Sex:Male Angel e:08/28/2024 Address: [address] [place], [id number] Subjective: * Chief Complaints: * ???1. Right eyelid swollen x 3 weeks. * HPI: ???COVID-19 Screening:?Questions?Have you had any new onset fever, chills, cough, congestion, sore throat, shortness of breath, muscle aches??No * ROS:?General/Constitutional:?pain?only normal aches and pains.?Chills?denies.?Fatigue?admits.?Fever?denies.?ENT:?Decreased hearing?denies.?Respiratory:?Cough?denies.?Cardiovascular:?Chest pain with exertion?denies.?Dyspnea on exertion?denies.?Shortness of breath?denies.?Gastrointestinal:?Constipation?denies.?Decreased appetite?denies.?Diarrhea?denies.?Heartburn?denies.?Nausea?denies.?Rectal bleeding?denies.?Vomiting?denies.?Hematology:?bruising?denies.?petechiae?denies.?Swollen glands?none have been noted.?Genitourinary:?Frequent urination?denies.?Musculoskeletal:?Muscle aches?denies.?Painful joints?denies.?Sciatica?denies.?Weakness?denies.?Skin:?Itching?denies.?Rash?denies.?Skin lesion(s)?denies.?Neurologic:?Difficulty speaking?denies.?Dizziness?denies.?Headache?denies.?Low back pain?denies.?Psychiatric:?Depressed mood?denies.? * Medical History:?Asthma, Obe sity, Dyspepsia, Vitiligo, GERD, Former smoker, February 2021 Covid19 19 infection. * Surgical History:?dental ext ractions without bleeding , No history . * Hospitalization/Major Diagno stic Procedure:?No history . * Family History:?Father: dece ased 37 yrs, Overdose from drugs and alcohol, diagnosed with CVD.?Mother: alive 59 yrs, Healthy and well.?Children: alive.?Son(s): alive.?Daughter(s): alive. Siblings: alive.?4 brother(s) , 1 sister(s) - healthy. 1 son(s) , 1 daughter(s) - healthy. .? His sister has a history of migraines and the recent lumbar puncture. He is not aware of any family syndrome inherited cancer. He is not aware of any diabetes hypertension or coronary artery disease. His 2 children are healthy and well. * Social History:?Tobacco Use:?Tobacco Control (Standard)?Tobacco use:?Former smoker ?How long has it been since you last smoked??6-12 months ?Additional Findings: Tobacco non-user?Ex-cigarette smoker ???He was in the [employer] for 4 years in [place]. He was born and cleans in [facility]. The family moved to [place] 13 years ago. He now lives in [place]. 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 He is to [place]. * Medications:?Taking Gabapent in 300 MG Capsule 1 capsule Orally four times a day , Taking traMADol HCl 50 MG Tablet 1 tablet as needed Orally three times a angel , Taking Albuterol Sulfate 108 (90 Base) MCG/ACT Aerosol Powder Breath Activated 1 puff as needed Inhalation every 4 hrs , Taking dexAMETHasone 2 MG Tablet 1 tablet Orally every 12 hrs , Taking Cyclobenzaprine HCl 10 MG Tablet 1 tablet Orally three times a day , Medication List reviewed and reconciled with the patient * Allergies:?No Known Drug All ergy. Objective: * Vitals:?Ht: 71, Wt: 217, BMI :30.26, BP: 142/73, HR: 82, Temp: 97.9, Ht-cm: 180.34, Wt-k.43. * Examination: ???General Examination: ?GENERAL APPEARANCE:?pleasant, well nourished, well developed, in no acute distress, calm and relaxed.?HEAD:?atraumatic, normocephalic.?EYES:?eomi, perrla, anicteric, conjugate.?EARS:?normal.?NOSE:?septum intact.?ORAL CAVITY:?normal, unremarkable.?NECK/THYROID:?no jugular venous distention, no carotid bruit, thyroid normal.?LYMPH NODES:?no enlarged lymph nodes,spleen normal.?SKIN:?no suspicious lesions, anicteric.?HEART:?no clicks, gallops, murmurs, or rubs, regular rhythm, S1, S2 normal, no s3, or vascular bruits.?LUNGS:?clear to auscultation .?BREASTS:??no masses palpable bilaterally.?ABDOMEN:?bowel sounds normal, no ascites, no organomegaly, no mass.?RECTAL EXAM:?not examined.?MUSCULOSKELETAL:?extremities unremarkable, no clubbing, cyanosis or edema.?PERIPHERAL PULSES:?normal.?NEUROLOGIC:?alert and oriented, cranial nerves 2-12 grossly intact, deep tendon reflexes 2+ symmetrical, motor strength normal upper and lower extremities, sensory exam intact.?PSYCH:?alert, oriented.? Assessment: * Assessment: 1.?Obesity (BMI 30.0-34.9) - E66.9???Notes :He continues his efforts at further weight loss. We have reviewed his diet and nutrition. We have reviewed his weight loss strategy. We made a plan to lose weightt at a rate of one half of a pound per week through regular physical activity aand a diet restricted in fat calories and sodium.???2.?Lumbar radiculopathy, right - M54.16???Notes :The MRI shows bilateral nerve impingement in the lower lumbar spine. His pain remains severe but has improved slightly with the gabapentin. I have increased the dose and continue the dexamethasone. He has been referred to pain management and neurosurgery. He has been given a supply of oxycodone to take 4 times a day for severe pain. He was cautioned not to drive an automobile or operate heavy machinery or consume alcohol with this medication.???3.?Chalazion of right upper eyelid - H00.11??? Plan: * Treatment: 2.?Lumbar radiculopathy, rig ht? Continue Cyclobenzaprine HCl Tablet, 10 MG, 1 tablet, Orally, three times a day.?? 3.?Chalazion of right upper eyelid?LAB: Routine Culture? Referral To:[facility]??Tub Chucker ?Reason:chalazion right upper eyelid refractory to antibiotics * Preventive Medicine:? ??Counseling:?Care goal follow-up plan:?Counseling for abnormal BMI given?Yes ?Above Normal BMI Follow-up?Dietary management education, guidance, and counseling, Dietary needs education, Exercise promotion: strength training, Exercise promotion: stretching, Feeding regime, Giving encouragement to exercise, Lifestyle education regarding diet, Nutrition / feeding management, Nutrition therapy, Prescribed activity/exercise education, Prescribed diet education, Prescribed dietary intake, Special diet education, Weight monitoring , Intervention, Order not done: Medical or Other reason not done * Follow Up:?end of next week (Reason: TV review culture) * Images: * The named appointment provid er may or may not be the originator of this progress note, and it is not deemed complete until electronically signed by the appointment provider. Sign off status: Pending * Provider:?Juan Bautista MD Date:?04/2024 Generated for Martha campo/Zee/eTransmitting on:?08/28/2024 05:11 PM EDT History and Physical Notes * HPI (History of Present Illness) Category Sub-Category Detail Notes COVID-19 Screening Questions Have you had any new onset fever, chills, cough, congestion, sore throat, shortness of breath, muscle aches?: No Examination Category Sub-Category Detail Notes General Examination GENERAL APPEARANCE: pleasant , well nourished, well developed, in no acute distress, calm and relaxed HEAD: atraumatic, normocep halic EYES: eomi, perrla, anicte ethan, conjugate EARS: normal NOSE: septum intact NECK/THYROID: no jugular venous di stention, no carotid bruit, thyroid normal HEART: no clicks, gallops, murmurs, or rubs, regular rhythm, S1, S2 normal, no s3, or vascular bruits LUNGS: clear to auscultatio n ABDOMEN: bowel sounds normal, no ascites, no organomegaly, no mass NEUROLOGIC: alert and oriented, cranial nerves 2-12 grossly intact, deep tendon reflexes 2+ symmetrical, motor strength normal upper and lower extremities, sensory exam intact SKIN: no suspicious lesion s, anicteric PERIPHERAL PULSES: normal BREASTS: no masses palpable b ilaterally MUSCULOSKELETAL: extremities unremark able, no clubbing, cyanosis or edema LYMPH NODES: no enlarged lymph no annie,spleen normal RECTAL EXAM: not examined PSYCH: alert, oriented ORAL CAVITY: normal, unremarkable Consultation Request Notes Referral Date Referring Provider Referred Provider Not es 08/28/2024 Juan Bautista[facility] chalazion right upper eyelid refractory to antibiotics
== END 2024-08-28 16:44 | disposition home or self-care (01) ==
LOC: HO.LNP 16:43
PROVIDERS: Visit Provider Internal Medicine Medical Oncology
DX: H00.11 Chalazion right upper eyelid (principal)
CPT/HCPCS: 87070; 87205

== ENCOUNTER 2025-03-07 07:21 | Outpatient (REF) | payer BC, SELFPAY ==
[2025-03-07 07:32] LABS: MANUAL DIFF FLAG NO
[2025-03-07 07:52] LABS: Hematocrit 46.0 % (42.0-52.0); Hemoglobin 15.1 g/dl (14.0-18.0); Imm Gran Abs Auto 0.04 X10*3/uL (0.00-0.03); Imm Gran Pct Auto 0.5 % (0.0-0.4); Lymphocytes Absolute Auto 2.6 X10*3/uL (1.2-4.9); Mean Corpuscular HGB Conc 32.8 g/dl (31.0-36.0); Mean Corpuscular Hemoglobin 30.4 pg (27.0-33.0); Mean Corpuscular Volume 92.6 fL (80.0-98.0); NRBC Abs Auto 0.000 X10*3/uL (0.0-0.012); NRBC Pct Auto 0.0 /100WBC (0.0-0.2); Platelet Count 396 X10*3/uL (160-400); Red Blood Count 4.97 X10*6/uL (4.60-5.80); White Blood Count 7.3 X10*3/uL (4.8-10.8)
[2025-03-07 08:36] LABS: Alanine Aminotransferase 27 U/L (0-40); Albumin Level 4.6 g/dL (3.5-5.0); Alkaline Phosphatase 59 U/L (39-117); Anion Gap 9 (12-20); Aspartate Amino Transferase 26 U/L (5-37); Blood Urea Nitrogen 17 mg/dL (9-16); Calcium 9.0 mg/dL (8.4-10.2); Carbon Dioxide 29 mmol/L (22-29); Chloride 107 mmol/L (96-108); Cholesterol 205 mg/dL (<200); Estimated Glomerular Filt Rate > 60; HDL Cholesterol 66 mg/dL (>40); Potassium 4.2 mmol/L (3.3-5.1); Sodium 141 mmol/L (135-145); Total Protein 7.2 g/dL (6.5-8.0); Triglycerides 65 mg/dL (<150)
[2025-03-07 08:52] LABS: Prostate Specific Antigen 0.74 ng/mL (<0.05-4.0)
== END 2025-03-07 07:22 | disposition home or self-care (01) ==
LOC: HO.LAB 07:21
PROVIDERS: PCP Internal Medicine Medical Oncology; Visit Provider Internal Medicine Medical Oncology
DX: Z00.00 Encounter for general adult medical examination without abnormal findings (principal); Z12.5 Encounter for screening for malignant neoplasm of prostate; Z13.6 Encounter for screening for cardiovascular disorders; Z13.0 Encounter for screening for diseases of the blood and blood-forming organs and certain disorders involving the immune mechanism; N40.0 Benign prostatic hyperplasia without lower urinary tract symptoms; E66.9 Obesity, unspecified
CPT/HCPCS: 36415; 80053; 80061; 84153; 85025